=== PATIENT | female | born 1935 | race Caucasian/White ===

== ENCOUNTER 2018-06-13 20:30 | Inpatient (IN) | payer MEDICARE ==
[~2018-06-13] VITALS: Ht 157.5 cm; Wt 71.9 kg
--- NOTE | 2018-06-13 20:53 | PDOC ---
Exam Note: Jose Note: Please also refer to the separate dictated note~for this date of service dictated separately.~Patient seen individually. Discussed the patient with Nursing staff reviewed the chart.~Reviewed interim history and current functioning. Reviewed vital signs,~Labs/ Radiology~and current medications noted below. Continue current treatment with the changes noted in the dictated addendum note Current Medications: I have reviewed the current psychotropics carefully including drug interactions. Risk benefit ratio favors no change other than as noted in my dictated progress note. PETEY VALDOVINOS MD Jun 13, 2018 20:52
[2018-06-13] MEDS ORDERED: MAG HYDROX/AL HYDROX/SIMETH 30 ML ORAL.SUSP PO PRN (21:30)
[2018-06-13] MEDS ORDERED: ACETAMINOPHEN 325 MG TABLET PO PRN ×2 (21:30→22:15)
[2018-06-13] MEDS ORDERED: MAGNESIUM HYDROXIDE 2,400 MG/30 ML ORAL.SUSP. PO PRN ×2 (21:30→22:15)
[2018-06-13] MEDS ORDERED: METHYL SALICYLATE/MENTHOL TOPICAL OINTMENT 29GM TUBE. TP PRN (21:30)
[2018-06-13 21:47] LABS: BASO # 0.2 x10^3/uL (0.0-0.2); BASO % 2 % (0-3); EOS # 0.4 x10^3/uL (0.0-0.7); EOS % 3 % (0-3); HEMATOCRIT 42.2 % (36.0-47.0); HEMOGLOBIN 13.8 g/dL (12.0-15.5); LYMPH # 2.6 x10^3/uL (1.0-4.8); LYMPH % 21 % (24-48); MEAN CORPUSCULAR HEMOGLOBIN 27 pg (25-35); MEAN CORPUSCULAR HGB CONC 33 g/dL (31-37); MEAN CORPUSCULAR VOLUME 84 fL (79-100); MONO # 1.1 x10^3/uL (0.0-1.1); MONO % 9 % (0-9); NEUT % 65 % (31-73); PLATELET COUNT 179 x10^3/uL (140-400); RED BLOOD COUNT 5.03 x10^6/uL (3.50-5.40); RED CELL DISTRIBUTION WIDTH 15.3 % (11.5-14.5); WHITE BLOOD COUNT 12.3 x10^3/uL (4.0-11.0)
[2018-06-13] MEDS ORDERED: ASPI325T8 PO (22:12)
[2018-06-13] MEDS ORDERED: PANT20TA58 PO (22:12)
[2018-06-13] MEDS ORDERED: POLY17PO5 PO (22:12)
[2018-06-13] MEDS ORDERED: OXYB5TAB33 PO (22:12)
[2018-06-13] MEDS ORDERED: MIRT15TA3 PO (22:12)
[2018-06-13] MEDS ORDERED: ENOX40DI SQ (22:12)
[2018-06-13] MEDS ORDERED: BISA5TAB4 PO (22:12)
[2018-06-13] MEDS ORDERED: MAGN400O7 PO (22:12)
[2018-06-13] MEDS ORDERED: TACR1CAP4 PO (22:12)
[2018-06-13] MEDS ORDERED: MULT1TAB52 PO (22:12)
[2018-06-13] MEDS ORDERED: ALPR0.5T PO (22:12)
[2018-06-13] MEDS ORDERED: BISA10SU55 RC (22:12)
[2018-06-13] MEDS ORDERED: ACET325T9 PO (22:12)
[2018-06-13] MEDS ORDERED: TRAZ-85 PO (22:12)
[2018-06-13] MEDS ORDERED: ONDA4TAB10 PO (22:12)
[2018-06-13] MEDS ORDERED: METO50TA6 PO (22:12)
[2018-06-13] MEDS ORDERED: MYCO180T10 PO (22:12)
[2018-06-13] MEDS ORDERED: AMLO5TAB4 PO (22:12)
[2018-06-13] MEDS ORDERED: MELA3TAB2 PO (22:12)
[2018-06-13] MEDS ORDERED: ATOR10TA60 PO (22:12)
[2018-06-13] MEDS ORDERED: BISACODYL TAB 5 MG TABLET.DR. PO PRN (22:15)
[2018-06-13 22:31] LABS: CALCIUM 9.6 mg/dL (8.5-10.1); CREATININE 0.9 mg/dL (0.6-1.0); GFR 59.9; MAGNESIUM 1.8 mg/dL (1.8-2.4); TOTAL BILIRUBIN 0.3 mg/dL (0.2-1.0)
[2018-06-13] MEDS ORDERED: BISACODYL 10 MG SUPP.RECT PR PRN (22:45)
[2018-06-13] MEDS ORDERED: traZODone 50 MG TABLET. PO PRN (22:45)
[2018-06-13] MEDS ORDERED: ALPRAZolam 0.5 MG TABLET PO PRN (22:45)
[2018-06-13] MEDS ORDERED: ONDANSETRON ODT 4 MG TAB.RAPDIS PO PRN (22:45)
[2018-06-13] MEDS ORDERED: MELATONIN 3 MG TABLET PO PRN (22:45)
[2018-06-13] MEDS: MIRTAZAPINE 7.5 MG TABLET. PO SCH (23:09)
[2018-06-13] MEDS: METOPROLOL TART IMMED RELEASE 50 MG TABLET PO SCH (23:09)
[2018-06-13] MEDS: TACROLIMUS 1 MG CAPSULE PO SCH (23:49)
[2018-06-14 01:31] VITALS: BP 145/67
[2018-06-14 06:47] VITALS: BP 143/63
[2018-06-14] MEDS: METOPROLOL TART IMMED RELEASE 50 MG TABLET PO SCH ×2 (08:09→20:44)
[2018-06-14] MEDS: TACROLIMUS 1 MG CAPSULE PO SCH ×2 (08:09→20:46)
[2018-06-14] MEDS: amLODIPine BESYLATE 5 MG TABLET PO SCH (08:13)
[2018-06-14] MEDS: ATORVASTATIN CALCIUM 10 MG TABLET. PO SCH (08:13)
[2018-06-14] MEDS: ASPIRIN 325 MG TABLET PO SCH (08:13)
[2018-06-14] MEDS: ENOXAPARIN 40 MG/0.4 ML SYRINGE. SQ SCH (08:14)
[2018-06-14] MEDS: MULTIVITAMIN with MINERAL TABLET. PO SCH (08:14)
[2018-06-14] MEDS: OXYBUTYNIN CHLORIDE 5 MG TABLET PO SCH (08:18)
[2018-06-14] MEDS: PANTOPRAZOLE 40 MG TABLET. PO SCH (08:18)
[2018-06-14] MEDS: POLYETHYLENE GLYCOL 3350 17 GM PACKET. PO SCH (08:18)
[2018-06-14] MEDS: MYCOPHENOLATE SODIUM 180 MG TABLET.DR PO SCH ×2 (09:00→20:50)
[2018-06-14 12:52] LABS: BACTERIA,URINE FEW /HPF (0-FEW); BILIRUBIN,URINE NEG (NEG); CLARITY,URINE CLEAR; COLOR,URINE YELLOW; GLUCOSE,URINE NEG (NEG); NITRITE,URINE NEG (NEG); RBC,URINE 0 /HPF (0-2); SQUAMOUS EPITHELIAL CELL,UR FEW /LPF; UROBILINOGEN,URINE 1 mg/dL (0.2 mg/dL); WBC,URINE OCC /HPF (0-4)
[2018-06-14 14:38] LABS: THYROID STIM HORMONE (TSH) 1.424 uIU/mL (0.358-3.740)
[2018-06-14 15:59] VITALS: BP 146/66
[2018-06-14] MEDS: MIRTAZAPINE 7.5 MG TABLET. PO SCH (20:43)
--- NOTE | 2018-06-14 20:43 | PDOC ---
Exam Note: Jose Note: Please also refer to the separate dictated note~for this date of service dictated separately.~Patient seen individually. Discussed the patient with Nursing staff reviewed the chart.~Reviewed interim history and current functioning. Reviewed vital signs,~Labs/ Radiology~and current medications noted below. Continue current treatment with the changes noted in the dictated addendum note Assessment: Vital Signs: Vital Signs Date Time Temp Pulse Resp B/P (MAP) Pulse Ox O2 Delivery O2 Flow Rate FiO2 06/14/18 15:59 97.8 65 18 146/66 (92) 97 Labs: Laboratory Tests Test 06/13/18 21:39 06/14/18 12:27 White Blood Count 12.3 x10^3/uL (4.0-11.0) H Red Blood Count 5.03 x10^6/uL (3.50-5.40) Hemoglobin 13.8 g/dL (12.0-15.5) Hematocrit 42.2 % (36.0-47.0) Mean Corpuscular Volume 84 fL (79-100) Mean Corpuscular Hemoglobin 27 pg (25-35) Mean Corpuscular Hemoglobin Concent 33 g/dL (31-37) Red Cell Distribution Width 15.3 % (11.5-14.5) H Platelet Count 179 x10^3/uL (140-400) Neutrophils (%) (Auto) 65 % (31-73) Lymphocytes (%) (Auto) 21 % (24-48) L Monocytes (%) (Auto) 9 % (0-9) Eosinophils (%) (Auto) 3 % (0-3) Basophils (%) (Auto) 2 % (0-3) Neutrophils # (Auto) 8.0 x10^3uL (1.8-7.7) H Lymphocytes # (Auto) 2.6 x10^3/uL (1.0-4.8) Monocytes # (Auto) 1.1 x10^3/uL (0.0-1.1) Eosinophils # (Auto) 0.4 x10^3/uL (0.0-0.7) Basophils # (Auto) 0.2 x10^3/uL (0.0-0.2) Sodium Level 142 mmol/L (136-145) Potassium Level 4.0 mmol/L (3.5-5.1) Chloride Level 109 mmol/L (98-107) H Carbon Dioxide Level 24 mmol/L (21-32) Anion Gap 9 (6-14) Blood Urea Nitrogen 24 mg/dL (7-20) H Creatinine 0.9 mg/dL (0.6-1.0) Estimated GFR (Cockcroft-Gault) 59.9 BUN/Creatinine Ratio 27 (6-20) H Glucose Level 104 mg/dL (70-99) H Calcium Level 9.6 mg/dL (8.5-10.1) Magnesium Level 1.8 mg/dL (1.8-2.4) Iron Level 30 ug/dL (50-170) L Total Iron Binding Capacity 225 ug/dL (250-450) L Iron Saturation 13 % (15-34) L Total Bilirubin 0.3 mg/dL (0.2-1.0) Aspartate Amino Transferase (AST) 12 U/L (15-37) L Alanine Aminotransferase (ALT) 19 U/L (14-59) Alkaline Phosphatase 86 U/L (46-116) Total Protein 6.0 g/dL (6.4-8.2) L Albumin 3.0 g/dL (3.4-5.0) L Albumin/Globulin Ratio 1.0 (1.0-1.7) Triglycerides Level 148 mg/dL (0-150) Cholesterol Level 142 mg/dL (0-200) LDL Cholesterol, Calculated 73 mg/dL (0-100) VLDL Cholesterol, Calculated 29 mg/dL (0-40) Non-HDL Cholesterol Calculated 102 mg/dL (0-129) HDL Cholesterol 40 mg/dL (40-60) Cholesterol/HDL Ratio 3.0 Vitamin B12 Level 604 pg/mL (247-911) 25-Hydroxy Vitamin D Total 31.8 ng/mL (30-100) Thyroid Stimulating Hormone (TSH) 1.424 uIU/mL (0.358-3.740) Treponema pallidum Antibody Nonreactive (Nonreactive) Urine Collection Type Unknown Urine Color Yellow Urine Clarity Clear Urine pH 6.0 Urine Specific [place] 1.010 Urine Protein Neg (NEG-TRACE) Urine Glucose (UA) Neg mg/dL (NEG) Urine Ketones (Stick) Neg mg/dL (NEG) Urine Blood Neg (NEG) Urine Nitrite Neg (NEG) Urine Bilirubin Neg (NEG) Urine Urobilinogen Dipstick 1 mg/dL (0.2 mg/dL) Urine Leukocyte Esterase Neg (NEG) Urine RBC 0 /HPF (0-2) Urine WBC Occ /HPF (0-4) Urine Squamous Epithelial Cells Few /LPF Urine Bacteria Few /HPF (0-FEW) Current Medications: Meds: Current Medications Acetaminophen (Tylenol) 650 mg PRN Q6HRS PRN PO PAIN / TEMP; Start 06/13/18 at 21:30; Status Cancel Multi-Ingredient Ointment (Analgesic [place]) 1 carlyn PRN QID PRN TP MUSCLE PAIN; Start 06/13/18 at 21:30 Al Hydroxide/Mg Hydroxide (Mylanta Plus Xs) 15 ml PRN AFTMEALHC PRN PO DYSPEPSIA; Start 06/13/18 at 21:30 Magnesium Hydroxide (Milk Of Magnesia) 2,400 mg PRN QHS PRN PO CONSTIPATION; Start 06/13/18 at 21:30; Status Cancel Alprazolam (Xanax) 0.5 mg PRN TID PRN PO ANXIETY / AGITATION; Start 06/13/18 at 22:45 Melatonin 6 mg PRN QHS PRN PO INSOMNIA; Start 06/13/18 at 22:45 Mirtazapine (Remeron) 7.5 mg QHS PO Last administered on 06/13/18at 23:09; Start 06/13/18 at 23:00 Trazodone HCl (Desyrel) 50 mg PRN QHS PRN PO INSOMNIA; Start 06/13/18 at 22:45 Acetaminophen (Tylenol) 650 mg PRN Q4HRS PRN PO PAIN / TEMP; Start 06/13/18 at 22:15 Aspirin (Chintan Aspirin) 325 mg DAILY PO Last administered on 06/14/18at 08:13; Start 06/14/18 at 09:00 Bisacodyl (Dulcolax Tab) 10 mg PRN DAILY PRN PO CONSTIPATION; Start 06/13/18 at 22:15 Magnesium Hydroxide (Milk Of Magnesia) 2,400 mg PRN BID PRN PO CONSTIPATION; Start 06/13/18 at 22:15 Ondansetron HCl (Zofran Odt) 4 mg PRN Q6HRS PRN PO NAUSEA/VOMITING; Start at 22:45 Amlodipine Besylate (Norvasc) 5 mg DAILY PO Last administered on 06/14/18 08:13 ; Start 06/14/18 at 09:00 Atorvastatin Calcium (Lipitor) 10 mg DAILY PO Last administered on 06/14/18at 08: 13; Start 06/14/18 at 09:00 Bisacodyl (Dulcolax Supp) 10 mg PRN DAILY PRN [place] CONSTIPATION; Start 06/13/18 at 22:45 Enoxaparin Sodium (Lovenox 40mg Syringe) 40 mg DAILY SQ Last administered on 06/14/18at 08:14; Start 06/14/18 at 09:00 Metoprolol Tartrate (Lopressor) 50 mg BID PO Last administered on 06/14/18 08: 09; Start 06/13/18 at 23:00 Multivitamins/ Calcium (Thera-M Plus) 1 tab DAILY PO Last administered on at 08:14; Start 06/14/18 at 09:00 Mycophenolate Sodium (Myfortic) 180 mg BID PO Last administered on 06/14/18at 09: 00; Start 06/14/18 at 09:00 Oxybutynin Chloride (Ditropan) 5 mg DAILY PO Last administered on 06/14/18 08: 18; Start 06/14/18 at 09:00 Pantoprazole Sodium (Protonix) 40 mg DAILY PO Last administered on 06/14/18at 08: 18; Start 06/14/18 at 09:00 Polyethylene Glycol (miraLAX) 17 gm DAILY PO Last administered on 06/14/18at 08: 18; Start 06/14/18 at 09:00 Tacrolimus (Prograf) 1 mg BID PO Last administered on 06/14/18at 08:09; Start 06/13/18 at 23:00 Active Scripts Active Reported Trazodone Hcl 50 Mg Tablet 50 Mg PO PRN QHS PRN Zofran Odt (Ondansetron) 4 Mg Tab.rapdis 4 Mg PO PRN Q6HRS PRN Melatonin 3 Mg Tablet 6 Mg PO PRN QHS PRN Milk Of Magnesia (Magnesium Hydroxide) 400 Mg/5 Ml Oral.susp 2,400 Mg PO PRN BID PRN Bisacodyl 5 Mg Tablet.dr 10 Mg PO PRN DAILY PRN Dulcolax (Bisacodyl) 10 Mg Supp.rect 10 Mg RC PRN DAILY PRN Miralax (Polyethylene Glycol 3350) 17 Gm Powd.pack 17 Gm PO DAILY Xanax (Alprazolam) 0.5 Mg Tablet 0.5 Mg PO TID Tylenol (Acetaminophen) 325 Mg Tablet 650 Mg PO PRN Q4HRS PRN Prograf (Tacrolimus) 1 Mg Capsule 1 Mg PO BID Protonix (Pantoprazole Sodium) 20 Mg Tablet.dr 20 Mg PO DAILY Ditropan Xl (Oxybutynin Chloride) 5 Mg Tab.er.24 5 Mg PO DAILY Myfortic (Mycophenolate Sodium) 180 Mg Tablet.dr 180 Mg PO BID Multivitamins (Multivitamin) 1 Each Tablet 1 Each PO DAILY Mirtazapine 15 Mg Tablet 7.5 Mg PO QHS Metoprolol Tartrate 50 Mg Tablet 50 Mg PO BID Lovenox (Enoxaparin Sodium) 40 Mg/0.4 Ml Disp.syrin 40 Mg SQ DAILY Atorvastatin Calcium 10 Mg Tablet 10 Mg PO DAILY Aspirin 325 Mg Tablet 325 Mg PO Norvasc (Amlodipine Besylate) 5 Mg Tablet 5 Mg PO DAILY I have reviewed the current psychotropics carefully including drug interactions. Risk benefit ratio favors no change other than as noted in my dictated progress note. Diagnosis: Problems: (1) Anxiety disorder (2) Dementia, vascular, with depression (3) Dementia in Alzheimer's disease with depression (4) Major depressive disorder, recurrent episode PETEY VALDOVINOS MD Jun 14, 2018 20:43
[2018-06-14 21:09] LABS: THYROXINE 8.6 ug/dL (4.5-12.0)
--- NOTE | 2018-06-15 01:31 | CONS ---
DATE OF CONSULTATION: 06/14/2018 REASON FOR CONSULTATION: Medical management. DICTATION ENDS HERE. LENNIE HANEY MD DR: TERESITA/ely JOB#: [id number] / [id number]
--- NOTE | 2018-06-15 03:55 | CONS ---
DATE OF CONSULTATION: 06/14/2018 REASON FOR CONSULTATION: Medical management. HISTORY OF PRESENT ILLNESS: The patient is an 83-year-old female patient, who was originally seen at [facility] where she was admitted with high level of depression, poor intake of fluid and nutrition for several days. She is self-care failure. She sometimes feels that the life is not worth living and endorsing passive thoughts of suicide. She denied any active plans, but states that she has given up on caring for herself, performing ADLs and eating. She said that she lives at home with her , but that he broke his foot and does not assist her at home with her self-care. She agreed to admission to Geriatric Psychiatry Unit for psychiatric stabilization due to severe depression resulting failure to thrive. On questioning her, she denied any chest pain, although she admitted to some shortness of breath. PAST MEDICAL HISTORY: Significant for hypertension, hyperlipidemia, coronary artery disease status post PCI stent deployment. She also has end-stage renal failure. She was in dialysis and she has a kidney transplant done about 5 years ago. She continued to have a functioning AV fistula in her left arm. She has an overactive bladder. PAST SURGICAL HISTORY: Significant for left arm arteriovenous fistula creation, kidney transplant, right knee arthroplasty, total knee arthroplasty and left knee steroid injection. ALLERGIES: She has no known drug allergies. MEDICATIONS: She is currently on following medications: She is on Lovenox 40 mg subcutaneously daily, atorvastatin calcium 10 mg at bedtime, metoprolol tartrate 50 mg twice a day, amlodipine 5 mg daily, aspirin 325 mg daily, Tylenol 650 mg p.o. q. 4 hourly p.r.n., mirtazapine 15 mg, she takes 7.5 mg at bedtime, trazodone 50 mg at bedtime, alprazolam 0.5 mg 3 times a day, bisacodyl 10 mg rectally daily p.r.n. for constipation, bisacodyl 5 mg tablet, she takes 10 mg orally daily, milk of magnesia 30 mL p.o. daily p.r.n. for constipation, polyethylene glycol 17 grams daily, ondansetron 4 mg every 6 hours, Protonix 20 mg daily, oxybutynin chloride, ditropan XL 5 mg daily. She is on mycophenolate sodium 180 mg twice a day and tacrolimus 1 mg twice a day, melatonin 6 mg at bedtime. FAMILY HISTORY: Unremarkable. SOCIAL HISTORY: She is , lives with . She has 3 daughters who lives in [place] and [place]. Her son lives with her, but neither her son nor her help her with [employer]. REVIEW OF SYSTEMS: The patient denied any blurring of vision, cataract, glaucoma or macular degeneration. Denied any earache, tinnitus or sensorineural deafness. Denied any nosebleeds, stuffy nose or postnasal drip. Denied any sore throat, sore tongue, toothache, hoarseness of voice or difficulty swallowing. Denied any nausea, vomiting, diarrhea or constipation. Denied any hematemesis, melena or hematochezia. Denied any dysuria, frequency or hematuria. Denied any chest pain. Did complain of shortness of breath, but denied any orthopnea or paroxysmal nocturnal dyspnea. Denied any cough, phlegm or hemoptysis. Denied any chills, rigors, or fever. PHYSICAL EXAMINATION: GENERAL: When I examined her this afternoon, she was sitting at the edge of the bed comfortably in no apparent distress. She was pale, but no jaundice, cyanosis or thyromegaly. No jugular venous distension. No lower limb edema. VITAL SIGNS: Her heart rate was 65, blood pressure 146/66, temperature was 97.8, respiratory rate was 18 and oxygen saturation was 97% on room air. HEAD, EYES, EARS, NOSE AND THROAT: Showed normocephalic, atraumatic. NECK: Supple. HEART: Showed normal first and second heart sounds with no gallop, rub or murmur. CHEST: Clear to auscultation. No crepitation or rhonchi. ABDOMEN: Slightly distended, soft, nontender. No guarding or rigidity. No organomegaly. All hernial orifice intact. Bowel sounds normal. NEUROLOGIC: She was awake, alert, responding appropriately. All cranial nerves are intact. EXTREMITIES: She moves extremities without difficulty. She ambulates with walker. She has a functioning AV fistula in the left arm. LABORATORY DATA: Showed a serum sodium 142, potassium 4, chloride 109, bicarbonate 24, anion gap of 9, BUN 24, creatinine 0.9. Estimated GFR was 60 mL per minute. Her glucose was 104. Calcium was 9.6, magnesium 1.8. Serum iron 30, TIBC was 225. Iron saturation was 13. Total bilirubin, AST, ALT, alkaline phosphatase were normal. Total protein was 6, albumin 3. Serum triglycerides were 148. Total cholesterol 142, LDL was 73. VLDL was 29, HDL cholesterol was 40 and the ratio was 3. TSH was 1.424. Her white cell count was 12,300, hemoglobin 13.8, hematocrit 42, MCV 84 and platelet count of 179,000. Her urinalysis showed the urine was yellow, clear with a pH of 6, specific gravity of 1.010. The urine was negative for protein, glucose, ketones, blood, nitrite and leukocyte esterase. There are no RBCs, no WBCs and very few bacteria. IMPRESSION: In summary, this is an 83-year-old female patient, who was admitted on account of severe depression, suicidal ideation, refusing to eat or drink, self-care failure, feeling life is not worth living. Apparently, her sister recently. She is here for inpatient psychiatric stabilization. Her past medical history is significant for chronic kidney disease for which she used to be on hemodialysis and she did receive kidney transplant in 2012. She has mitral valve replacement, left knee surgery, arteriovenous fistula formation, joint replacement of the right side. She is hemodynamically stable, afebrile. All her lab works are within acceptable range. Her urinalysis is clear. All in all, she seemed to be medically stable. I will obviously follow all the lab work that are still pending at the time of this dictation and make any necessary recommendation. Thank you, Dr. Huber for allowing me to participate in the care of this patient. LENNIE HANEY MD DR: TERESITA/ely JOB#: [id number] / [id number]
[2018-06-15 06:07] VITALS: BP 102/65
[2018-06-15] MEDS: ATORVASTATIN CALCIUM 10 MG TABLET. PO SCH (07:26)
[2018-06-15] MEDS: OXYBUTYNIN CHLORIDE 5 MG TABLET PO SCH (07:26)
[2018-06-15] MEDS: ASPIRIN 325 MG TABLET PO SCH (07:26)
[2018-06-15] MEDS: METOPROLOL TART IMMED RELEASE 50 MG TABLET PO SCH ×2 (07:26→20:08)
[2018-06-15] MEDS: POLYETHYLENE GLYCOL 3350 17 GM PACKET. PO SCH (07:26)
[2018-06-15] MEDS: MULTIVITAMIN with MINERAL TABLET. PO SCH (07:26)
[2018-06-15] MEDS: PANTOPRAZOLE 40 MG TABLET. PO SCH (07:27)
[2018-06-15] MEDS: amLODIPine BESYLATE 5 MG TABLET PO SCH (07:27)
[2018-06-15] MEDS: MYCOPHENOLATE SODIUM 180 MG TABLET.DR PO SCH ×2 (07:28→20:08)
[2018-06-15] MEDS: TACROLIMUS 1 MG CAPSULE PO SCH ×2 (07:28→20:10)
[2018-06-15] MEDS: ENOXAPARIN 40 MG/0.4 ML SYRINGE. SQ SCH (07:28)
[2018-06-15 16:13] VITALS: BP 138/73
[2018-06-15] MEDS: MIRTAZAPINE 7.5 MG TABLET. PO SCH (20:08)
--- NOTE | 2018-06-15 23:18 | PDOC ---
Exam Note: Jose Note: Please also refer to the separate dictated note~for this date of service dictated separately.~Patient seen individually. Discussed the patient with Nursing staff reviewed the chart.~Reviewed interim history and current functioning. Reviewed vital signs,~Labs/ Radiology~and current medications noted below. Continue current treatment with the changes noted in the dictated addendum note Assessment: Vital Signs: Vital Signs Date Time Temp Pulse Resp B/P (MAP) Pulse Ox O2 Delivery O2 Flow Rate FiO2 06/15/18 20:08 69 138/73 06/15/18 16:13 98.0 18 97 06/15/18 06:07 Room Air I&O Intake and Output 06/15/18 07:00 Intake Total 840 ml Balance 840 ml Intake Oral 840 ml Current Medications: Meds: Current Medications Acetaminophen (Tylenol) 650 mg PRN Q6HRS PRN PO PAIN / TEMP; Start 06/13/18 at 21:30; Status Cancel Multi-Ingredient Ointment (Analgesic [place]) 1 carlyn PRN QID PRN TP MUSCLE PAIN; Start 06/13/18 at 21:30 Al Hydroxide/Mg Hydroxide (Mylanta Plus Xs) 15 ml PRN AFTMEALHC PRN PO DYSPEPSIA; Start 06/13/18 at 21:30 Magnesium Hydroxide (Milk Of Magnesia) 2,400 mg PRN QHS PRN PO CONSTIPATION; Start 06/13/18 at 21:30; Status Cancel Alprazolam (Xanax) 0.5 mg PRN TID PRN PO ANXIETY / AGITATION; Start 06/13/18 at 22:45 Melatonin 6 mg PRN QHS PRN PO INSOMNIA; Start 06/13/18 at 22:45 Mirtazapine (Remeron) 7.5 mg QHS PO Last administered on 06/15/18at 20:08; Start 06/13/18 at 23:00 Trazodone HCl (Desyrel) 50 mg PRN QHS PRN PO INSOMNIA; Start 06/13/18 at 22:45 Acetaminophen (Tylenol) 650 mg PRN Q4HRS PRN PO PAIN / TEMP; Start 06/13/18 at 22:15 Aspirin (Chintan Aspirin) 325 mg DAILY PO Last administered on 06/15/18at 07:26; Start 06/14/18 at 09:00 Bisacodyl (Dulcolax Tab) 10 mg PRN DAILY PRN PO CONSTIPATION; Start 06/13/18 at 22:15 Magnesium Hydroxide (Milk Of Magnesia) 2,400 mg PRN BID PRN PO CONSTIPATION; Start 06/13/18 at 22:15 Ondansetron HCl (Zofran Odt) 4 mg PRN Q6HRS PRN PO NAUSEA/VOMITING; Start at 22:45 Amlodipine Besylate (Norvasc) 5 mg DAILY PO Last administered on 06/15/18 07:27 ; Start 06/14/18 at 09:00 Atorvastatin Calcium (Lipitor) 10 mg DAILY PO Last administered on 06/15/18 07: 26; Start 06/14/18 at 09:00 Bisacodyl (Dulcolax Supp) 10 mg PRN DAILY PRN [place] CONSTIPATION; Start 06/13/18 at 22:45 Enoxaparin Sodium (Lovenox 40mg Syringe) 40 mg DAILY SQ Last administered on 07:28; Start 06/14/18 at 09:00 Metoprolol Tartrate (Lopressor) 50 mg BID PO Last administered on 06/15/18 20: 08; Start 06/13/18 at 23:00 Multivitamins/ Calcium (Thera-M Plus) 1 tab DAILY PO Last administered on 07:26; Start 06/14/18 at 09:00 Mycophenolate Sodium (Myfortic) 180 mg BID PO Last administered on 06/15/18 20: 08; Start 06/14/18 at 09:00 Oxybutynin Chloride (Ditropan) 5 mg DAILY PO Last administered on 06/15/18 07: 26; Start 06/14/18 at 09:00 Pantoprazole Sodium (Protonix) 40 mg DAILY PO Last administered on 06/15/18 07: 27; Start 06/14/18 at 09:00 Polyethylene Glycol (miraLAX) 17 gm DAILY PO Last administered on 06/15/18 07: 26; Start 06/14/18 at 09:00 Tacrolimus (Prograf) 1 mg BID PO Last administered on 06/15/18 20:10; Start 06/13/18 at 23:00 Active Scripts Active Reported Trazodone Hcl 50 Mg Tablet 50 Mg PO PRN QHS PRN Zofran Odt (Ondansetron) 4 Mg Tab.rapdis 4 Mg PO PRN Q6HRS PRN Melatonin 3 Mg Tablet 6 Mg PO PRN QHS PRN Milk Of Magnesia (Magnesium Hydroxide) 400 Mg/5 Ml Oral.susp 2,400 Mg PO PRN BID PRN Bisacodyl 5 Mg Tablet.dr 10 Mg PO PRN DAILY PRN Dulcolax (Bisacodyl) 10 Mg Supp.rect 10 Mg RC PRN DAILY PRN Miralax (Polyethylene Glycol 3350) 17 Gm Powd.pack 17 Gm PO DAILY Xanax (Alprazolam) 0.5 Mg Tablet 0.5 Mg PO TID Tylenol (Acetaminophen) 325 Mg Tablet 650 Mg PO PRN Q4HRS PRN Prograf (Tacrolimus) 1 Mg Capsule 1 Mg PO BID Protonix (Pantoprazole Sodium) 20 Mg Tablet.dr 20 Mg PO DAILY Ditropan Xl (Oxybutynin Chloride) 5 Mg Tab.er.24 5 Mg PO DAILY Myfortic (Mycophenolate Sodium) 180 Mg Tablet.dr 180 Mg PO BID Multivitamins (Multivitamin) 1 Each Tablet 1 Each PO DAILY Mirtazapine 15 Mg Tablet 7.5 Mg PO QHS Metoprolol Tartrate 50 Mg Tablet 50 Mg PO BID Lovenox (Enoxaparin Sodium) 40 Mg/0.4 Ml Disp.syrin 40 Mg SQ DAILY Atorvastatin Calcium 10 Mg Tablet 10 Mg PO DAILY Aspirin 325 Mg Tablet 325 Mg PO Norvasc (Amlodipine Besylate) 5 Mg Tablet 5 Mg PO DAILY I have reviewed the current psychotropics carefully including drug interactions. Risk benefit ratio favors no change other than as noted in my dictated progress note. Diagnosis: Problems: (1) Anxiety disorder (2) Dementia, vascular, with depression (3) Dementia in Alzheimer's disease with depression (4) Major depressive disorder, recurrent episode PETEY VALDOVINOS MD Jun 15, 2018 23:18
[2018-06-16 06:14] VITALS: BP 122/73
[2018-06-16] MEDS: OXYBUTYNIN CHLORIDE 5 MG TABLET PO SCH (07:43)
[2018-06-16] MEDS: ATORVASTATIN CALCIUM 10 MG TABLET. PO SCH (07:43)
[2018-06-16] MEDS: POLYETHYLENE GLYCOL 3350 17 GM PACKET. PO SCH (07:43)
[2018-06-16] MEDS: PANTOPRAZOLE 40 MG TABLET. PO SCH (07:43)
[2018-06-16] MEDS: MULTIVITAMIN with MINERAL TABLET. PO SCH (07:43)
[2018-06-16] MEDS: TACROLIMUS 1 MG CAPSULE PO SCH ×2 (07:43→19:56)
[2018-06-16] MEDS: ASPIRIN 325 MG TABLET PO SCH (07:43)
[2018-06-16] MEDS: MYCOPHENOLATE SODIUM 180 MG TABLET.DR PO SCH ×2 (07:43→19:56)
[2018-06-16] MEDS: ENOXAPARIN 40 MG/0.4 ML SYRINGE. SQ SCH (07:44)
[2018-06-16] MEDS: amLODIPine BESYLATE 5 MG TABLET PO SCH (07:44)
[2018-06-16] MEDS: METOPROLOL TART IMMED RELEASE 50 MG TABLET PO SCH ×2 (07:44→19:56)
[2018-06-16] MEDS: SERTRALINE 25 MG TABLET. PO SCH (07:47)
--- NOTE | 2018-06-16 10:28 | HP ---
ADMIT DATE: 06/14/2018 PSYCHIATRIC ADMISSION HISTORY/EVALUATION This is a late entry of 06/14/2018, covers elements not covered in my initial note. IDENTIFYING DATA: I met with the patient at length in her room evening of 06/14/2018. Previously discussed with nursing staff on 4 or 5 occasions including prior to the patient's admission to gather historical information after she was referred to us from [facility] in [place], [place] on account of worsening symptoms of depression and voicing suicidal ideation, refusing to eat or drink, refusing self-care, feeling life is not worth living. Reportedly, a sister recently, she has been quite overwhelmed, depressed, and more forgetful. CHIEF COMPLAINT: "No, I do not want to kill myself, I just said that." HISTORY OF PRESENT ILLNESS: The patient has a history of worsening symptoms of depression. She lives at home with her and son lives close by. She has been isolative, withdrawn, not having any interest in day-to-day activities, more forgetful for short term events, refusing to eat, having sleep disturbance, and has failed outpatient psychiatric interventions. She was seen by Dr. Shetty, psychiatrist for consultation at [facility], recommended inpatient psychiatric hospitalization. No clear history of bipolar disorder, homicidal ideation, or psychotic symptoms. PAST PSYCHIATRIC HISTORY: As above. MEDICAL HISTORY: Chronic kidney disease; hyperlipidemia; hypertension; status post kidney transplant recipient in 2012; prediabetes; syncope; mitral valve replacement on 07/2013; left knee surgery; AV fistula formation, left in 05/2011; and joint replacement, right side. Her primary care physician is Dr. Pugh in [place]. ACCU-CHEKS: A.c. and at bedtime. DIET: Regular. CURRENT PSYCHOTROPICS: Remeron 7.5 mg at bedtime and Xanax p.r.n. DRUG ALLERGIES: Negative. CODE STATUS: Full code. UA negative at [facility]. FAMILY HISTORY: Noncontributory. SOCIAL HISTORY: The patient lives at home with her . Her son lives close by. She has 3 daughters, who live out of [facility] [place], [place] and [place]. She states she works in the [employer] and [employer] business for 33 years. Her was a diesel truck mechanic. REACTION TO HOSPITALIZATION: The patient reluctantly accepting it. ASSETS: Supportive family, cognitively reasonably intact. Does have some short-term memory deficits. MENTAL STATUS EXAM: The patient was seen individually at length on the evening of 06/14/2018. She is oriented to herself and situation. The patient knew it was June, but initially said it was 2018, then corrected it to 2017. Able to do one-step on serial 7's. Remembered 1/3 objects at 5 minutes. She is somewhat anxious. Eye contact somewhat poor. Speech coherent. Thought processes goal directed. Intellect average. Insight good. Judgment intact to standard questioning. Mood is depressed, anxious. Affect is mood congruent. No active suicidal or homicidal ideation. LABORATORY DATA: Reviewed. IMPRESSION: Major depressive disorder, recurrent; major neurocognitive disorder, probably vascular with depression; anxiety disorder, unspecified; and impulse control disorder, unspecified. Rest as above. PLAN: Admit to geropsychiatry unit at [facility]. I will see the patient daily individually from a psychiatric standpoint. Medical followup with Dr. Mendosa/Dr. Copeland. Continue current psychotropics. Observe baseline, then adjust and consider adding SSRIs. Estimated length of stay 10-12 days. DISPOSITION PLANS: Back home with to outpatient psychiatric followup. PETEY VALDOVINOS MD DR: TAM/ely JOB#: [id number] / [id number]
[2018-06-16 15:57] VITALS: BP 152/73
[2018-06-16] MEDS: MIRTAZAPINE 7.5 MG TABLET. PO SCH (19:56)
--- NOTE | 2018-06-16 20:53 | PDOC ---
Exam Note: Jose Note: Please also refer to the separate dictated note~for this date of service dictated separately.~Patient seen individually. Discussed the patient with Nursing staff reviewed the chart.~Reviewed interim history and current functioning. Reviewed vital signs,~Labs/ Radiology~and current medications noted below. Continue current treatment with the changes noted in the dictated addendum note Assessment: Vital Signs: Vital Signs Date Time Temp Pulse Resp B/P (MAP) Pulse Ox O2 Delivery O2 Flow Rate FiO2 06/16/18 19:56 77 152/73 06/16/18 15:57 98.6 16 97 06/16/18 06:14 Room Air I&O Intake and Output 06/16/18 07:00 Intake Total 1080 ml Balance 1080 ml Intake Oral 1080 ml # Bowel Movements 1 Current Medications: Meds: Current Medications Acetaminophen (Tylenol) 650 mg PRN Q6HRS PRN PO PAIN / TEMP; Start 06/13/18 at 21:30; Status Cancel Multi-Ingredient Ointment (Analgesic [place]) 1 carlyn PRN QID PRN TP MUSCLE PAIN; Start 06/13/18 at 21:30 Al Hydroxide/Mg Hydroxide (Mylanta Plus Xs) 15 ml PRN AFTMEALHC PRN PO DYSPEPSIA; Start 06/13/18 at 21:30 Magnesium Hydroxide (Milk Of Magnesia) 2,400 mg PRN QHS PRN PO CONSTIPATION; Start 06/13/18 at 21:30; Status Cancel Alprazolam (Xanax) 0.5 mg PRN TID PRN PO ANXIETY / AGITATION; Start 06/13/18 at 22:45 Melatonin 6 mg PRN QHS PRN PO INSOMNIA; Start 06/13/18 at 22:45 Mirtazapine (Remeron) 7.5 mg QHS PO Last administered on 06/16/18at 19:56; Start 06/13/18 at 23:00 Trazodone HCl (Desyrel) 50 mg PRN QHS PRN PO INSOMNIA; Start 06/13/18 at 22:45 Acetaminophen (Tylenol) 650 mg PRN Q4HRS PRN PO PAIN / TEMP; Start 06/13/18 at 22:15 Aspirin (Chintan Aspirin) 325 mg DAILY PO Last administered on 06/16/18at 07:43; Start 06/14/18 at 09:00 Bisacodyl (Dulcolax Tab) 10 mg PRN DAILY PRN PO CONSTIPATION; Start 06/13/18 at 22:15 Magnesium Hydroxide (Milk Of Magnesia) 2,400 mg PRN BID PRN PO CONSTIPATION; Start 06/13/18 at 22:15 Ondansetron HCl (Zofran Odt) 4 mg PRN Q6HRS PRN PO NAUSEA/VOMITING; Start at 22:45 Amlodipine Besylate (Norvasc) 5 mg DAILY PO Last administered on 06/16/18 07:44 ; Start 06/14/18 at 09:00 Atorvastatin Calcium (Lipitor) 10 mg DAILY PO Last administered on 06/16/18 07: 43; Start 06/14/18 at 09:00 Bisacodyl (Dulcolax Supp) 10 mg PRN DAILY PRN [place] CONSTIPATION; Start 06/13/18 at 22:45 Enoxaparin Sodium (Lovenox 40mg Syringe) 40 mg DAILY SQ Last administered on 07:44; Start 06/14/18 at 09:00 Metoprolol Tartrate (Lopressor) 50 mg BID PO Last administered on 06/16/18 19: 56; Start 06/13/18 at 23:00 Multivitamins/ Calcium (Thera-M Plus) 1 tab DAILY PO Last administered on 07:43; Start 06/14/18 at 09:00 Mycophenolate Sodium (Myfortic) 180 mg BID PO Last administered on 06/16/18 19: 56; Start 06/14/18 at 09:00 Oxybutynin Chloride (Ditropan) 5 mg DAILY PO Last administered on 06/16/18 07: 43; Start 06/14/18 at 09:00 Pantoprazole Sodium (Protonix) 40 mg DAILY PO Last administered on 06/16/18 07: 43; Start 06/14/18 at 09:00 Polyethylene Glycol (miraLAX) 17 gm DAILY PO Last administered on 06/16/18 07: 43; Start 06/14/18 at 09:00 Tacrolimus (Prograf) 1 mg BID PO Last administered on 06/16/18 19:56; Start 06/13/18 at 23:00 Sertraline HCl (Zoloft) 25 mg DAILY PO Last administered on 06/16/18at 07:47; Start 06/16/18 at 09:00 Active Scripts Active Reported Trazodone Hcl 50 Mg Tablet 50 Mg PO PRN QHS PRN Zofran Odt (Ondansetron) 4 Mg Tab.rapdis 4 Mg PO PRN Q6HRS PRN Melatonin 3 Mg Tablet 6 Mg PO PRN QHS PRN Milk Of Magnesia (Magnesium Hydroxide) 400 Mg/5 Ml Oral.susp 2,400 Mg PO PRN BID PRN Bisacodyl 5 Mg Tablet.dr 10 Mg PO PRN DAILY PRN Dulcolax (Bisacodyl) 10 Mg Supp.rect 10 Mg RC PRN DAILY PRN Miralax (Polyethylene Glycol 3350) 17 Gm Powd.pack 17 Gm PO DAILY Xanax (Alprazolam) 0.5 Mg Tablet 0.5 Mg PO TID Tylenol (Acetaminophen) 325 Mg Tablet 650 Mg PO PRN Q4HRS PRN Prograf (Tacrolimus) 1 Mg Capsule 1 Mg PO BID Protonix (Pantoprazole Sodium) 20 Mg Tablet.dr 20 Mg PO DAILY Ditropan Xl (Oxybutynin Chloride) 5 Mg Tab.er.24 5 Mg PO DAILY Myfortic (Mycophenolate Sodium) 180 Mg Tablet.dr 180 Mg PO BID Multivitamins (Multivitamin) 1 Each Tablet 1 Each PO DAILY Mirtazapine 15 Mg Tablet 7.5 Mg PO QHS Metoprolol Tartrate 50 Mg Tablet 50 Mg PO BID Lovenox (Enoxaparin Sodium) 40 Mg/0.4 Ml Disp.syrin 40 Mg SQ DAILY Atorvastatin Calcium 10 Mg Tablet 10 Mg PO DAILY Aspirin 325 Mg Tablet 325 Mg PO Norvasc (Amlodipine Besylate) 5 Mg Tablet 5 Mg PO DAILY I have reviewed the current psychotropics carefully including drug interactions. Risk benefit ratio favors no change other than as noted in my dictated progress note. Diagnosis: Problems: (1) Anxiety disorder (2) Dementia, vascular, with depression (3) Dementia in Alzheimer's disease with depression (4) Major depressive disorder, recurrent episode PETEY VALDOVINOS MD Jun 16, 2018 20:53
[2018-06-17 06:21] VITALS: BP 155/82
[2018-06-17] MEDS: POLYETHYLENE GLYCOL 3350 17 GM PACKET. PO SCH (08:47)
[2018-06-17] MEDS: ASPIRIN 325 MG TABLET PO SCH (08:47)
[2018-06-17] MEDS: PANTOPRAZOLE 40 MG TABLET. PO SCH (08:48)
[2018-06-17] MEDS: METOPROLOL TART IMMED RELEASE 50 MG TABLET PO SCH ×2 (08:48→20:15)
[2018-06-17] MEDS: ATORVASTATIN CALCIUM 10 MG TABLET. PO SCH (08:48)
[2018-06-17] MEDS: SERTRALINE 25 MG TABLET. PO SCH (08:48)
[2018-06-17] MEDS: MULTIVITAMIN with MINERAL TABLET. PO SCH (08:48)
[2018-06-17] MEDS: OXYBUTYNIN CHLORIDE 5 MG TABLET PO SCH (08:48)
[2018-06-17] MEDS: amLODIPine BESYLATE 5 MG TABLET PO SCH (08:49)
[2018-06-17] MEDS: MYCOPHENOLATE SODIUM 180 MG TABLET.DR PO SCH ×2 (08:51→20:15)
[2018-06-17] MEDS: TACROLIMUS 1 MG CAPSULE PO SCH ×2 (08:51→20:15)
[2018-06-17] MEDS: ENOXAPARIN 40 MG/0.4 ML SYRINGE. SQ SCH (08:52)
[2018-06-17 15:51] VITALS: BP 132/67
[2018-06-17] MEDS: MIRTAZAPINE 7.5 MG TABLET. PO SCH (20:14)
--- NOTE | 2018-06-17 20:45 | PN ---
DATE: 06/15/2018 PSYCHIATRIC PROGRESS NOTE This late entry 06/15/2018 covers elements not covered in my initial note. SUBJECTIVE: Met with the patient in evening of 06/15/2018. The patient remains somewhat withdrawn, isolative, minimizes circumstances, prompting admission and her depressive symptoms and memory problems, wanting to return home. Sat with her in her room. REVIEW OF SYSTEMS: No CV, , pulmonary, eye, ENT system symptoms on review. MENTAL STATUS EXAM: The patient is oriented to herself and situation. Speech is coherent, has some latency. Abstraction fair, computation impaired, language function intact, attention span short. Mood and affect somewhat withdrawn though she minimizes this. No active suicidal ideation. LABORATORY DATA: Reviewed. IMPRESSION: Major depressive disorder, recurrent; major neurocognitive disorder, early Alzheimer, vascular with depression. Rest unchanged. PLAN: Continue Remeron 7.5 mg at bedtime, Xanax p.r.n. Start Zoloft 25 mg a day for her mood, anxiety and ruminative thought processes. PETEY VALDOVINOS MD DR: TAM/ely JOB#: [id number] / [id number]
--- NOTE | 2018-06-17 20:51 | PDOC ---
Exam Note: Jose Note: Please also refer to the separate dictated note~for this date of service dictated separately.~Patient seen individually. Discussed the patient with Nursing staff reviewed the chart.~Reviewed interim history and current functioning. Reviewed vital signs,~Labs/ Radiology~and current medications noted below. Continue current treatment with the changes noted in the dictated addendum note Assessment: Vital Signs: Vital Signs Date Time Temp Pulse Resp B/P (MAP) Pulse Ox O2 Delivery O2 Flow Rate FiO2 06/17/18 20:15 63 132/67 06/17/18 15:51 97.7 20 98 Room Air I&O Intake and Output 06/17/18 07:00 Intake Total 960 ml Balance 960 ml Intake Oral 960 ml # Bowel Movements 1 Current Medications: Meds: Current Medications Acetaminophen (Tylenol) 650 mg PRN Q6HRS PRN PO PAIN / TEMP; Start 06/13/18 at 21:30; Status Cancel Multi-Ingredient Ointment (Analgesic [place]) 1 carlyn PRN QID PRN TP MUSCLE PAIN; Start 06/13/18 at 21:30 Al Hydroxide/Mg Hydroxide (Mylanta Plus Xs) 15 ml PRN AFTMEALHC PRN PO DYSPEPSIA; Start 06/13/18 at 21:30 Magnesium Hydroxide (Milk Of Magnesia) 2,400 mg PRN QHS PRN PO CONSTIPATION; Start 06/13/18 at 21:30; Status Cancel Alprazolam (Xanax) 0.5 mg PRN TID PRN PO ANXIETY / AGITATION; Start 06/13/18 at 22:45 Melatonin 6 mg PRN QHS PRN PO INSOMNIA; Start 06/13/18 at 22:45 Mirtazapine (Remeron) 7.5 mg QHS PO Last administered on 06/17/18at 20:14; Start 06/13/18 at 23:00 Trazodone HCl (Desyrel) 50 mg PRN QHS PRN PO INSOMNIA; Start 06/13/18 at 22:45 Acetaminophen (Tylenol) 650 mg PRN Q4HRS PRN PO PAIN / TEMP; Start 06/13/18 at 22:15 Aspirin (Chintan Aspirin) 325 mg DAILY PO Last administered on 06/17/18at 08:47; Start 06/14/18 at 09:00 Bisacodyl (Dulcolax Tab) 10 mg PRN DAILY PRN PO CONSTIPATION; Start 06/13/18 at 22:15 Magnesium Hydroxide (Milk Of Magnesia) 2,400 mg PRN BID PRN PO CONSTIPATION; Start 06/13/18 at 22:15 Ondansetron HCl (Zofran Odt) 4 mg PRN Q6HRS PRN PO NAUSEA/VOMITING; Start at 22:45 Amlodipine Besylate (Norvasc) 5 mg DAILY PO Last administered on 06/17/18 08: 49; Start 06/14/18 at 09:00 Atorvastatin Calcium (Lipitor) 10 mg DAILY PO Last administered on 06/17/18 08 :48; Start 06/14/18 at 09:00 Bisacodyl (Dulcolax Supp) 10 mg PRN DAILY PRN [place] CONSTIPATION; Start 06/13/18 at 22:45 Enoxaparin Sodium (Lovenox 40mg Syringe) 40 mg DAILY SQ Last administered on 08:52; Start 06/14/18 at 09:00 Metoprolol Tartrate (Lopressor) 50 mg BID PO Last administered on 06/17/18 20: 15; Start 06/13/18 at 23:00 Multivitamins/ Calcium (Thera-M Plus) 1 tab DAILY PO Last administered on 08:48; Start 06/14/18 at 09:00 Mycophenolate Sodium (Myfortic) 180 mg BID PO Last administered on 06/17/18 20 :15; Start 06/14/18 at 09:00 Oxybutynin Chloride (Ditropan) 5 mg DAILY PO Last administered on 06/17/18 08: 48; Start 06/14/18 at 09:00 Pantoprazole Sodium (Protonix) 40 mg DAILY PO Last administered on 06/17/18 08 :48; Start 06/14/18 at 09:00 Polyethylene Glycol (miraLAX) 17 gm DAILY PO Last administered on 06/17/18 08: 47; Start 06/14/18 at 09:00 Tacrolimus (Prograf) 1 mg BID PO Last administered on 06/17/18 20:15; Start at 23:00 Sertraline HCl (Zoloft) 25 mg DAILY PO Last administered on 9/10/18at 08:48; Start 06/16/18 at 09:00; Stop 06/18/18 at 23:00 Sertraline HCl (Zoloft) 50 mg DAILY PO ; Start 06/19/18 at 09:00 Active Scripts Active Reported Trazodone Hcl 50 Mg Tablet 50 Mg PO PRN QHS PRN Zofran Odt (Ondansetron) 4 Mg Tab.rapdis 4 Mg PO PRN Q6HRS PRN Melatonin 3 Mg Tablet 6 Mg PO PRN QHS PRN Milk Of Magnesia (Magnesium Hydroxide) 400 Mg/5 Ml Oral.susp 2,400 Mg PO PRN BID PRN Bisacodyl 5 Mg Tablet.dr 10 Mg PO PRN DAILY PRN Dulcolax (Bisacodyl) 10 Mg Supp.rect 10 Mg RC PRN DAILY PRN Miralax (Polyethylene Glycol 3350) 17 Gm Powd.pack 17 Gm PO DAILY Xanax (Alprazolam) 0.5 Mg Tablet 0.5 Mg PO TID Tylenol (Acetaminophen) 325 Mg Tablet 650 Mg PO PRN Q4HRS PRN Prograf (Tacrolimus) 1 Mg Capsule 1 Mg PO BID Protonix (Pantoprazole Sodium) 20 Mg Tablet.dr 20 Mg PO DAILY Ditropan Xl (Oxybutynin Chloride) 5 Mg Tab.er.24 5 Mg PO DAILY Myfortic (Mycophenolate Sodium) 180 Mg Tablet.dr 180 Mg PO BID Multivitamins (Multivitamin) 1 Each Tablet 1 Each PO DAILY Mirtazapine 15 Mg Tablet 7.5 Mg PO QHS Metoprolol Tartrate 50 Mg Tablet 50 Mg PO BID Lovenox (Enoxaparin Sodium) 40 Mg/0.4 Ml Disp.syrin 40 Mg SQ DAILY Atorvastatin Calcium 10 Mg Tablet 10 Mg PO DAILY Aspirin 325 Mg Tablet 325 Mg PO Norvasc (Amlodipine Besylate) 5 Mg Tablet 5 Mg PO DAILY I have reviewed the current psychotropics carefully including drug interactions. Risk benefit ratio favors no change other than as noted in my dictated progress note. Diagnosis: Problems: (1) Anxiety disorder (2) Dementia, vascular, with depression (3) Dementia in Alzheimer's disease with depression (4) Major depressive disorder, recurrent episode PETYE VALDOVINOS MD Jun 17, 2018 20:51
--- NOTE | 2018-06-17 22:54 | PN ---
DATE: 06/16/2018 PSYCHIATRIC PROGRESS NOTE This is a late entry of 06/16/2018, covers elements not covered in my initial note. SUBJECTIVE: I met with the patient in the evening. The patient has been withdrawn, spends much time in her room, wants to go home, compliant with medications. I met with her in her room at length. She minimizes circumstances prompting admission including suicidal statements, depression and memory deficits. I addressed this at length. REVIEW OF SYSTEMS: No CV, , pulmonary, eye, ENT system symptoms on review. MENTAL STATUS EXAM: Oriented to herself and situation. Speech moderate latency, low in volume, coherent, abstraction fair, computation impaired, language function intact. Attention span short. Short term memory does have some deficits. LABORATORY DATA: Reviewed. IMPRESSION: Unchanged from initial note. PLAN: No change from initial note. We started her on Zoloft, may need to increase in day or so. Continue trazodone 50 at bedtime, Remeron 7.5 at bedtime, Xanax p.r.n. PETEY VALDOVINOS MD DR: TAM/ely JOB#: [id number] / [id number]
[2018-06-18 06:30] VITALS: BP 116/57
[2018-06-18] MEDS: OXYBUTYNIN CHLORIDE 5 MG TABLET PO SCH (08:15)
[2018-06-18] MEDS: ASPIRIN 325 MG TABLET PO SCH (08:15)
[2018-06-18] MEDS: ATORVASTATIN CALCIUM 10 MG TABLET. PO SCH (08:15)
[2018-06-18] MEDS: METOPROLOL TART IMMED RELEASE 50 MG TABLET PO SCH ×2 (08:18→08:25)
[2018-06-18] MEDS: amLODIPine BESYLATE 5 MG TABLET PO SCH (08:19)
[2018-06-18] MEDS: POLYETHYLENE GLYCOL 3350 17 GM PACKET. PO SCH (08:19)
[2018-06-18] MEDS: PANTOPRAZOLE 40 MG TABLET. PO SCH (08:20)
[2018-06-18] MEDS: SERTRALINE 25 MG TABLET. PO SCH (08:20)
[2018-06-18] MEDS: MULTIVITAMIN with MINERAL TABLET. PO SCH (08:20)
[2018-06-18] MEDS: ENOXAPARIN 40 MG/0.4 ML SYRINGE. SQ SCH (08:21)
[2018-06-18] MEDS: MYCOPHENOLATE SODIUM 180 MG TABLET.DR PO SCH (08:23)
[2018-06-18] MEDS: TACROLIMUS 1 MG CAPSULE PO SCH (08:23)
[2018-06-18 08:25] VITALS: BP 116/57
[2018-06-18] MEDS ORDERED: MAG355OR11 PO (12:10)
[2018-06-18] MEDS ORDERED: METH29OI TP (12:10)
[2018-06-18] MEDS ORDERED: SERT50TA8 PO (12:12)
--- NOTE | 2018-06-18 20:46 | PDOC ---
Exam Note: Jose Note: Please also refer to the separate dictated note~for this date of service dictated separately.~Patient seen individually. Discussed the patient with Nursing staff reviewed the chart.~Reviewed interim history and current functioning. Reviewed vital signs,~Labs/ Radiology~and current medications noted below. Continue current treatment with the changes noted in the dictated addendum note Assessment: Vital Signs: Vital Signs Date Time Temp Pulse Resp B/P (MAP) Pulse Ox O2 Delivery O2 Flow Rate FiO2 06/18/18 08:25 60 116/57 06/18/18 06:30 98.1 20 99 06/17/18 15:51 Room Air I&O Intake and Output 06/18/18 07:00 Intake Total 600 ml Balance 600 ml Intake Oral 600 ml # Voids 1 # Bowel Movements 1 Current Medications: Meds: Current Medications Acetaminophen (Tylenol) 650 mg PRN Q6HRS PRN PO PAIN / TEMP; Start 06/13/18 at 21:30; Status Cancel Multi-Ingredient Ointment (Analgesic [place]) 1 keith PRN QID PRN TP MUSCLE PAIN; Start 06/13/18 at 21:30; Stop 06/18/18 at 14:42; Status DC Al Hydroxide/Mg Hydroxide (Mylanta Plus Xs) 15 ml PRN AFTMEALHC PRN PO DYSPEPSIA; Start 06/13/18 at 21:30; Stop 06/18/18 at 14:42; Status DC Magnesium Hydroxide (Milk Of Magnesia) 2,400 mg PRN QHS PRN PO CONSTIPATION; Start 06/13/18 at 21:30; Status Cancel Alprazolam (Xanax) 0.5 mg PRN TID PRN PO ANXIETY / AGITATION; Start 06/13/18 at 22:45; Stop 06/18/18 at 14:42; Status DC Melatonin 6 mg PRN QHS PRN PO INSOMNIA; Start 06/13/18 at 22:45; Stop 06/18/18 at 14:42; Status DC Mirtazapine (Remeron) 7.5 mg QHS PO Last administered on 06/17/18at 20:14; Start 06/13/18 at 23:00; Stop 06/18/18 at 14:42; Status DC Trazodone HCl (Desyrel) 50 mg PRN QHS PRN PO INSOMNIA; Start 06/13/18 at 22:45; Stop 06/18/18 at 14:42; Status DC Acetaminophen (Tylenol) 650 mg PRN Q4HRS PRN PO PAIN / TEMP; Start 06/13/18 at 22:15; Stop 06/18/18 at 14:42; Status DC Aspirin (Chintan Aspirin) 325 mg DAILY PO Last administered on 06/18/18at 08:15; Start 06/14/18 at 09:00; Stop 06/18/18 at 14:42; Status DC Bisacodyl (Dulcolax Tab) 10 mg PRN DAILY PRN PO CONSTIPATION; Start 06/13/18 at 22:15; Stop 06/18/18 at 14:42; Status DC Magnesium Hydroxide (Milk Of Magnesia) 2,400 mg PRN BID PRN PO CONSTIPATION; Start 06/13/18 at 22:15; Stop 06/18/18 at 14:42; Status DC Ondansetron HCl (Zofran Odt) 4 mg PRN Q6HRS PRN PO NAUSEA/VOMITING; Start at 22:45; Stop 06/18/18 at 14:42; Status DC Amlodipine Besylate (Norvasc) 5 mg DAILY PO Last administered on 06/18/18at 08: 19; Start 06/14/18 at 09:00; Stop 06/18/18 at 14:42; Status DC Atorvastatin Calcium (Lipitor) 10 mg DAILY PO Last administered on 06/18/18at 08 :15; Start 06/14/18 at 09:00; Stop 06/18/18 at 14:42; Status DC Bisacodyl (Dulcolax Supp) 10 mg PRN DAILY PRN [place] CONSTIPATION; Start 06/13/18 at 22:45; Stop 06/18/18 at 14:42; Status DC Enoxaparin Sodium (Lovenox 40mg Syringe) 40 mg DAILY SQ Last administered on 08/25at 08:21; Start 06/14/18 at 09:00; Stop 06/18/18 at 14:42; Status DC Metoprolol Tartrate (Lopressor) 50 mg BID PO Last administered on 06/17/18at 20: 15; Start 06/13/18 at 23:00; Stop 06/18/18 at 14:42; Status DC Multivitamins/ Calcium (Thera-M Plus) 1 tab DAILY PO Last administered on at 08:20; Start 06/14/18 at 09:00; Stop 06/18/18 at 14:42; Status DC Mycophenolate Sodium (Myfortic) 180 mg BID PO Last administered on 06/18/18at 08 :23; Start 06/14/18 at 09:00; Stop 06/18/18 at 14:42; Status DC Oxybutynin Chloride (Ditropan) 5 mg DAILY PO Last administered on 06/18/18at 08: 15; Start 06/14/18 at 09:00; Stop 06/18/18 at 14:42; Status DC Pantoprazole Sodium (Protonix) 40 mg DAILY PO Last administered on 06/18/18at 08 :20; Start 06/14/18 at 09:00; Stop 06/18/18 at 14:42; Status DC Polyethylene Glycol (miraLAX) 17 gm DAILY PO Last administered on 06/18/18at 08: 19; Start 06/14/18 at 09:00; Stop 06/18/18 at 14:42; Status DC Tacrolimus (Prograf) 1 mg BID PO Last administered on 06/18/18at 08:23; Start at 23:00; Stop 06/18/18 at 14:42; Status DC Sertraline HCl (Zoloft) 25 mg DAILY PO Last administered on 06/18/18at 08:20; Start 06/16/18 at 09:00; Stop 06/18/18 at 14:42; Status DC Sertraline HCl (Zoloft) 50 mg DAILY PO ; Start 06/19/18 at 09:00; Stop 06/19/18 at 09:00; Status DC Active Scripts Active Reported Sertraline Hcl 50 Mg Tablet 50 Mg PO DAILY Analgesic [place] (Methyl Salicylate/Menthol) 28 Gm Oint...g. 1 Keith TP PRN QID PRN Maalox Advanced Suspension (Mag Hydrox/Aluminum Hyd/Simeth) 355 Ml Oral.susp 15 Ml PO PRN AFTMEALHC PRN Trazodone Hcl 50 Mg Tablet 50 Mg PO PRN QHS PRN Zofran Odt (Ondansetron) 4 Mg Tab.rapdis 4 Mg PO PRN Q6HRS PRN Melatonin 3 Mg Tablet 6 Mg PO PRN QHS PRN Milk Of Magnesia (Magnesium Hydroxide) 400 Mg/5 Ml Oral.susp 2,400 Mg PO PRN BID PRN Bisacodyl 5 Mg Tablet.dr 10 Mg PO PRN DAILY PRN Dulcolax (Bisacodyl) 10 Mg Supp.rect 10 Mg RC PRN DAILY PRN Miralax (Polyethylene Glycol 3350) 17 Gm Powd.pack 17 Gm PO DAILY Xanax (Alprazolam) 0.5 Mg Tablet 0.5 Mg PO PRN TID PRN Tylenol (Acetaminophen) 325 Mg Tablet 650 Mg PO PRN Q4HRS PRN Prograf (Tacrolimus) 1 Mg Capsule 1 Mg PO BID Protonix (Pantoprazole Sodium) 20 Mg Tablet.dr 20 Mg PO DAILY Ditropan Xl (Oxybutynin Chloride) 5 Mg Tab.er.24 5 Mg PO DAILY Myfortic (Mycophenolate Sodium) 180 Mg Tablet.dr 180 Mg PO BID Multivitamins (Multivitamin) 1 Each Tablet 1 Each PO DAILY Mirtazapine 15 Mg Tablet 7.5 Mg PO QHS Metoprolol Tartrate 50 Mg Tablet 50 Mg PO BID Atorvastatin Calcium 10 Mg Tablet 10 Mg PO DAILY Aspirin 325 Mg Tablet 325 Mg PO Norvasc (Amlodipine Besylate) 5 Mg Tablet 5 Mg PO DAILY I have reviewed the current psychotropics carefully including drug interactions. Risk benefit ratio favors no change other than as noted in my dictated progress note. Diagnosis: Problems: (1) Anxiety disorder (2) Dementia, vascular, with depression (3) Dementia in Alzheimer's disease with depression (4) Major depressive disorder, recurrent episode PETEY VALDOVINOS MD Jun 18, 2018 20:46
--- NOTE | 2018-06-18 21:03 | PN ---
DATE: 06/17/2018 PSYCHIATRIC PROGRESS NOTE This is a late entry 06/17/2018 covers elements not covered in my initial note. SUBJECTIVE: I met with the patient in the evening in her room at length. She slept 8 hours previous night, has been quite withdrawn, spends much time in her room. We addressed getting involved with activities to stimulate her mind using crossword puzzles, audio books, or reading books amongst other things. She is reasonably oriented. Complains of some ongoing nausea and diarrhea and I will defer to Dr. Mendosa for this. REVIEW OF SYSTEMS: No CV, , pulmonary, eye system symptoms on review. MENTAL STATUS EXAM: Oriented to herself, situations. Speech is coherent, has some latency. Abstraction fair, computation impaired, language function intact. Short term memory does have some deficits otherwise well oriented. No active suicidal or homicidal ideation. Mood remains dysphoric, anxious, but improved. LABORATORY DATA: Reviewed. IMPRESSION: Unchanged from initial note. PLAN: Increase Zoloft to 50 mg a day when she has been on 25 for 3 days, maintain Remeron, trazodone, along with melatonin and Xanax p.r.n. MAN Jae VALDOVINOS MD DR: TAM/ely JOB#: [id number] / [id number]
[2018-06-19] MEDS ORDERED: SERTRALINE 50 MG TABLET. PO SCH (09:00)
--- NOTE | 2018-06-19 18:05 | DS ---
DATE OF DISCHARGE: 06/18/2018 DISCHARGE SUMMARY/PSYCHIATRIC PROGRESS NOTE This late entry 06/18/2018 covers elements not covered in my initial note. REASON FOR ADMISSION: Please refer to the admission history for details. Briefly, the patient is an 83-year-old female referred from [facility] on account of worsening symptoms of depression and suicidal ideation, refusing to eat or drink, failure of self-care, feeling life was not worth living. Her sister recently, which made her mood symptoms even worse as compared to before this. She was deemed a danger to herself, had failed outpatient psychiatric interventions, referred for inpatient psychiatric stabilization. SIGNIFICANT FINDINGS AND CLINICAL COURSE: Following admission, the patient was seen daily individually from a psychiatric standpoint by myself, followed medically per Dr. Mendosa/Dr. Copeland. She is quite withdrawn, isolated by short-term memory deficits, which she seemed to minimize. Most of the memory deficits deemed consequent to her vascular changes and it was not felt appropriate to add a cholinesterase inhibitor. Adjustments were made in her psychotropics. She seemed to be doing better on a combination of Zoloft 50 mg a day, Remeron 7.5 mg at bedtime, trazodone 50 at bedtime, melatonin 6 mg at bedtime p.r.n., Xanax p.r.n. At this stage, she was extremely insistent on discharge as was her . She denied active suicidal ideation. Recommendation was to continue inpatient stabilization and further adjustments in her psychotropics, but she refused this and was discharged on 06/18/2018. CONDITION AT DISCHARGE: Improved. REVIEW OF SYSTEMS: Prior to discharge, 06/18/2018, no CV, , pulmonary, eye, ENT system symptoms on review. She was still quite withdrawn to her room. MENTAL STATUS EXAMINATION: Oriented to herself and situation. Speech coherent, has some latency. Abstraction fair, computation impaired, language function intact. Attention span short. Short term memory is impaired. No suicidal or homicidal ideation. FINAL DIAGNOSES: Major depressive disorder, recurrent, in partial remission; anxiety disorder, unspecified; major neurocognitive disorder, early vascular with depression. Rest unchanged from admission. DISCHARGE MEDICATIONS: Please refer to the MRAD. DISCHARGE INSTRUCTIONS: Outpatient psychiatric and medical followup with her primary care physician. I discussed with the Social Service staff on several occasions as the patient and were both insisting on early discharge and we finally agreed to their request. MAN Jae VALDOVINOS MD DR: Mikey JOB#: [id number] / [id number]
== END 2018-06-18 13:00 | disposition home or self-care (01) | DRG 56 ==
LOC: GEROPSY 20:30
PROVIDERS: ADMIT Psychiatry & Neurology Psychiatry; ATTEND Psychiatry & Neurology Psychiatry
DX: G30.9 Alzheimer's disease, unspecified (principal); N18.6 End stage renal disease; F33.9 Major depressive disorder, recurrent, unspecified; I12.0 Hypertensive chronic kidney disease with stage 5 chronic kidney disease or end stage renal disease; R45.851 Suicidal ideations; Z94.0 Kidney transplant status; F01.50 Vascular dementia, unspecified severity, without behavioral disturbance, psychotic disturbance, mood disturbance, and anxiety; Z96.651 Presence of right artificial knee joint; E78.5 Hyperlipidemia, unspecified; F02.80 Dementia in other diseases classified elsewhere, unspecified severity, without behavioral disturbance, psychotic disturbance, mood disturbance, and anxiety; F33.41 Major depressive disorder, recurrent, in partial remission; F41.9 Anxiety disorder, unspecified; F63.9 Impulse disorder, unspecified; I25.10 Atherosclerotic heart disease of native coronary artery without angina pectoris; Z95.2 Presence of prosthetic heart valve; Z95.5 Presence of coronary angioplasty implant and graft; Z99.2 Dependence on renal dialysis; Z79.899 Other long term (current) drug therapy
CPT/HCPCS: 36415; 80053; 80061; 81001; 82306; 82607; 83036; 83540; 83550; 83735; 84436; 84443; 84480; 85025; 86592; J1650; J7507; 97110; 97116; 97530; 97535